=== PATIENT | male | born 2000 | race Two or more races ===

== ENCOUNTER 2023-03-12 00:51 | Emergency (ER) | payer OTHER ==
[2023-03-12] MEDS ORDERED: SODIUM CHLORIDE 0.9% 1,000 ML IV STA ×2 (01:04→03:43)
[2023-03-12] MEDS ORDERED: MORPHINE 10 MG/ML VIAL IVP STA (01:04)
[2023-03-12] MEDS ORDERED: ceFAZolin 1 GM in SODIUM CHLORIDE 0.9% MINIBAG 100 ML IV STA (01:07)
[2023-03-12 01:13] LABS: BASOPHILS % (AUTO) 0.6 %; EOSINOPHILS # (AUTO) 0.4 10^3/uL (0.0-0.7); EOSINOPHILS % (AUTO) 5.8 %; HGB - HEMOGLOBIN 14.7 g/dL (14.0-18.0); LYMPHOCYTES # (AUTO) 2.4 10^3/uL (1.5-3.5); LYMPHOCYTES % (AUTO) 32.4 %; MEAN CORPUSCULAR HEMOGLOBIN 28.7 pg (27.0-31.0); MEAN CORPUSCULAR HGB CONC 33.4 g/dL (32.0-36.0); MEAN CORPUSCULAR VOLUME 85.9 fL (80.0-94.0); MEAN PLATELET VOLUME 9.9 fL (7.4-11.4); MONOCYTES # (AUTO) 0.6 10^3/uL (0.0-1.0); NEUTROPHILS # (AUTO) 3.8 10^3/uL (1.5-6.6); NEUTROPHILS % (AUTO) 52.9 %; PLT - PLATELET COUNT 219 10^3/uL (130-450); RED BLOOD COUNT 5.12 10^6/uL (4.70-6.10); RED CELL DISTRIBUTION WIDTH 12.6 % (12.0-15.0); WHITE BLOOD COUNT 7.3 x10^3/uL (4.8-10.8)
[2023-03-12] MEDS ORDERED: ceFAZolin 1 GM VIAL ONE (01:22)
[2023-03-12 01:28] LABS: ALBUMIN 4.5 g/dL (3.2-5.5); ALBUMIN/GLOBULIN RATIO 1.7 (1.0-2.2); BILIRUBIN,TOTAL 0.5 mg/dL (0.2-1.0); CALCIUM 8.6 mg/dL (8.5-10.3); CREATININE 1.1 mg/dL (0.6-1.3); ETOH - ETHANOL 119.1 mg/dL; POTASSIUM 3.6 mmol/L (3.5-4.5); TOTAL PROTEIN 7.1 g/dL (6.4-8.9)
[2023-03-12] MEDS ORDERED: LIDOCAINE 2%-EPI 1:100000 20 ML MDV SUBQ STA (01:47)
[2023-03-12] MEDS ORDERED: LIDOCAINE 2%-EPI 1:100000 20 ML MDV ONE (01:53)
[2023-03-12 02:33] LABS: MUDS CUTOFF CONCENTRATIONS CUTOFF CONC BELOW:
[2023-03-12 02:37] LABS: BILIRUBIN,URINE NEGATIVE (NEGATIVE); GLUCOSE, URINE (UA) NEGATIVE (NEGATIVE); KETONES,URINE (UA) NEGATIVE (NEGATIVE); LEUKOCYTE ESTERASE, URINE NEGATIVE (NEGATIVE); NITRITE,URINE NEGATIVE (NEGATIVE); OCCULT BLOOD,URINE NEGATIVE (NEGATIVE); PROTEIN,URINE NEGATIVE (NEGATIVE); UROBILINOGEN,URINE 0.2 (NORMAL) E.U./dL (NORMAL)
[2023-03-12] MEDS ORDERED: iohexoL-300 100 ML VIAL IVP ONE (02:49)
[2023-03-12 03:08] LABS: CLARITY,URINE CLEAR (CLEAR)
[2023-03-12 03:09] LABS: AMPHETAMINE SCREEN,URINE NEGATIVE (NEGATIVE); BARBITURATE SCREEN,UR NEGATIVE (NEGATIVE); BENZODIAZEPINES SCREEN, URINE NEGATIVE (NEGATIVE); COCAINE SCREEN URINE NEGATIVE (NEGATIVE); METHADONE SCREEN, URINE NEGATIVE (NEGATIVE); METHAMPHETAMINES SCREEN, URINE NEGATIVE (NEGATIVE); OPIATE SCREEN, URINE POSITIVE (NEGATIVE); OXYCODONE SCREEN, URINE NEGATIVE (NEGATIVE); PROPOXYPHENE SCREEN, URINE NEGATIVE (NEGATIVE); THC CANNABINOID SCREEN, URINE NEGATIVE (NEGATIVE); TRICYCLIC ANTIDEPRESSANT,URINE NEGATIVE (NEGATIVE)
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
[2023-03-12] MEDS ORDERED: MORPHINE 2 MG/ML CARPUJECT IVP STA (03:42)
[2023-03-12] MEDS ORDERED: ACETAMINOPHEN 325 MG TABLET PO STA ×2 (04:20→05:18)
[2023-03-12 05:02] VITALS: O2SAT 96
[2023-03-12] MEDS ORDERED: oxyCODONE 5 MG TABLET PO STA (05:19)
[2023-03-12 06:03] LABS: B. PARAPERTUSSIS- RESP PCR PAN NOT DETECTED; B. PERTUSSIS- RESP PCR PANEL NOT DETECTED; C. PNEUMONIAE- RESP PCR PANEL NOT DETECTED; CORONAVIRUS 229E-RESP PCR NOT DETECTED; CORONAVIRUS HKU1-RESP PCR NOT DETECTED; CORONAVIRUS NL63-RESP PCR NOT DETECTED; CORONAVIRUS OC43-RESP PCR NOT DETECTED; HUMAN METAPNEUMOVIRUS NOT DETECTED; INFLUENZA A- RESP PCR PANEL NOT DETECTED; INFLUENZA B - RESP PCR PANEL NOT DETECTED; M. PNEUMONIAE- RESP PCR PANEL NOT DETECTED; PARAINFLUENZA VIRUS 1 NOT DETECTED; PARAINFLUENZA VIRUS 2 NOT DETECTED; PARAINFLUENZA VIRUS 3 NOT DETECTED; PARAINFLUENZA VIRUS 4 NOT DETECTED; RHINOVIRUS/ENTEROVIRUS NOT DETECTED; RSV- RESP PCR PANEL NOT DETECTED; SARS-CoV-2 -RESP PCR PANEL NOT DETECTED
[2023-03-12 06:32] VITALS: BP 129/75
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
== END 2023-03-12 06:15 | disposition home or self-care (01) ==
LOC: ED 00:51
DX: S51.801A Unspecified open wound of right forearm, initial encounter (principal); S80.211A Abrasion, right knee, initial encounter; S80.212A Abrasion, left knee, initial encounter; V28.49XA Other motorcycle driver injured in noncollision transport accident in traffic accident, initial encounter; Y93.55 Activity, bike riding; Y92.411 Interstate highway as the place of occurrence of the external cause; L53.9 Erythematous condition, unspecified; R50.9 Fever, unspecified; Z20.822 Contact with and (suspected) exposure to COVID-19
CPT/HCPCS: 36415; 70450; 71045; 71260; 72125; 72170; 73090; 73560; 74177; 80053; 80306; 80320; 81003; 83690; 85025; 87633; 96365; 96375; 96376; 99284; A9270; Q9967; 81001; 87086